=== PATIENT | female | born 1975 | race Caucasian/White ===

== ENCOUNTER → 2017-01-30 | Outpatient (CLI) | payer BC ==
[~2017-01-30] MED LIST: ADDERALL20 MG PO; CIPRO 500MG TA500 MG PO; LAMICTAL 100 M100 MG PO; NEXIUM20 MG PO; SYNTHROID0.112 MG PO; WELLBUTRIN 150150 MG PO
== END ==
LOC: LAB 19:55
DX: J01.90 Acute sinusitis, unspecified (principal)

== ENCOUNTER → 2017-03-06 | Outpatient (CLI) | payer BC ==
[2017-03-06 18:49] LABS: HEMOGLOBIN 13.9 g/dL (12.2-16.2); LYMPH # 2.9 K/mm3 (0.7-4.5); LYMPH % 24.6 % (10-50.0)
[2017-03-06 19:06] LABS: BUN 9 mg/dL (7-18)
[2017-03-06 19:08] LABS: GFR (ESTIMATED) 93 ML/MIN (59-)
== END ==
LOC: LAB 18:18
PROVIDERS: Physician Assistant
DX: E03.9 Hypothyroidism, unspecified (principal)

== ENCOUNTER 2017-08-13 07:26 | Day surgery (SDC) | payer BC ==
--- NOTE | 2017-08-13 09:00 | Operative Note ---
Upper GI Endoscopy Procedure date: 08/13/17 Date of : 79 Procedure:Upper GI Endoscopy Esophagogastroduodenoscopy with cold biopsies Indications: Mrs. Sanchez is a 41-year-old female with gastroesophageal reflux disease and dyspepsia. She also has chronic diarrhea. Most of this worsened 4 years ago after her laparoscopic cholecystectomy. She does take Nexium daily but has to supplement with Rolaids and Tums. She does report bilious diarrhea daily which occurs mostly postprandially and in the mornings. She has moderate bloating, gassiness and belching. She reports nausea, early satiety and epigastric abdominal discomfort. She has some heartburn and reflux. She reports no dysphagia. She reports no melena or hematochezia. She reports no weight loss or fever. She reports no family history of colitis, Crohn's disease or colon cancer. She is here for diagnostic upper endoscopy and colonoscopy. Performing Provider: Kacy Ortega MD Referring Provider: Anjana Osborn PA-C/Nick Kidd M.D. Sedation: Fentanyl 100 mg IV/Versed 7 mg IV Procedure: Prior to the procedure, a history and physical exam was performed, and patients medications and allergies were reviewed. The risks and benefits of the procedure and the sedation options and risks were discussed with the patient. All questions were answered and informed consent was obtained. The patient was brought to the procedure room. Patient identification and proposed procedure were verified by the physician and the nurse. The patient was placed in a left lateral decubitus position and the scope was passed under direct vision. Throughout the procedure, the patient's blood pressure, pulse, and oxygen saturations were monitored continuously. The endoscope was introduced through the mouth, and advanced to the second part of duodenum. The upper GI endoscopy was accomplished without difficulty. The patient tolerated the procedure well. Findings: The scope was passed directly into the upper esophagus and advanced to the third portion of the duodenum. The post bulbar duodenum and duodenal bulb were normal with normal mucosa and conniventes. Cold biopsies were taken from the post bulbar duodenum to rule out celiac disease. The scope was withdrawn through a normal duodenal bulb and pylorus into the stomach. There was some bile reflux with linear erythema of the antrum and body consistent with linear reactive gastritis. The remainder of the antrum, body and fundus of the stomach were grossly normal. Upon retroflexion there was no hiatal hernia. 2 biopsies were taken in the antrum and along the lesser curvature for histology. The scope was then withdrawn into the esophagus. There was no evidence of reflux esophagitis or Corona's. There was faint esophageal varices that are of questionable significance. There was a mid esophageal papilloma that was removed via cold biopsy. The remainder of the esophageal mucosa was normal. Immediate complications: None EBL (ml): 0 Impression: 1. Mid esophageal papilloma (5 mm) removed 2. Very faint esophageal varices (questionable significance) 3. Bile reflux with linear reactive gastritis Recommendations: I do feel that the patient has functional dyspepsia and functional gastroesophageal reflux disease. We will discuss additional dietary measures and treatment options. I also feel that she has colorrhea diarrhea and will likely respond to a bile acid binding agent (Colestid, WelChol or Questran). I am going to check liver function and I do not suspect portal hypertension. I will proceed with diagnostic colonoscopy. at [id number]
--- NOTE | 2017-08-13 09:18 | Operative Note ---
Colonoscopy ([facility]) Procedure date: 08/13/17 Date of : [birth year] Procedure:Colonoscopy Colonoscopy with cold biopsies Indications: Mrs. Sanchez is a 41-year-old female with gastroesophageal reflux disease and dyspepsia. She also has chronic diarrhea. Most of this worsened 4 years ago after her laparoscopic cholecystectomy. She does take Nexium daily but has to supplement with Rolaids and Tums. She does report bilious diarrhea daily which occurs mostly postprandially and in the mornings. She has moderate bloating, gassiness and belching. She reports nausea, early satiety and epigastric abdominal discomfort. She has some heartburn and reflux. She reports no dysphagia. She reports no melena or hematochezia. She reports no weight loss or fever. She reports no family history of colitis, Crohn's disease or colon cancer. She is here for diagnostic upper endoscopy and colonoscopy. Performing Provider: Kacy Ortega MD Referrring Provider: Anjana Osborn PA-C/Nick Kidd M.D. Sedation: Fentanyl 200 mg IV/Versed 9 mg IV (combined sedation for EGD/colonoscopy) Procedure: Prior to the procedure, a history and physical exam was performed, and patient medications and allergies were reviewed. The risks and benefits of the procedure and the sedation options and risks were discussed with the patient. All questions were answered and informed consent was obtained. Patient identification and proposed procedure were verified by the physician and the nurse. The patient was placed in a left lateral decubitus position. Throughout the procedure, the patient's blood pressure, pulse, and oxygen saturations were monitored continuously. Findings: On digital rectal examination there was normal rectal tone. There were no external hemorrhoids. The colonoscope was introduced through the anal canal to the rectum and advanced to the cecum. The ileocecal valve and appendiceal orifice were identified. The scope was advanced a short distance into the ileum which appeared grossly normal. The scope was then withdrawn into the colon. The cecum, ascending, transverse, descending, sigmoid and rectum were grossly normal. Cold biopsies were taken from the RIGHT colon to rule out microscopic/ lymphocytic colitis. There were no mucosal abnormalities identified. Upon retroflexion within the rectum there were grade 1 internal hemorrhoids. Impressions: 1. Normal colonoscopy with intubation of the terminal ileum 2. Grade 1 internal hemorrhoids Recommendations: I will follow up the biopsies. I suspect choleraic diarrhea and IBS. I will place the patient on a bowel acid binding agent (Colestid). We will discuss additional dietary measures and probiotic therapy. Complications: None EBL (ml): 0 at 0917
[2017-08-13 10:58] LABS: HEMOGLOBIN 14.3 g/dL (12.2-16.2); LYMPH # 2.6 K/mm3 (0.7-4.5); LYMPH % 31.1 % (10-50.0)
[2017-08-13 16:24] VITALS: BP 109/74
[2017-08-13 23:14] LABS: BUN 9 mg/dL (7-18)
[2017-08-13 23:15] LABS: GFR (ESTIMATED) 93 ML/MIN (59-)
[2017-08-14 08:43] LABS: Alpha-1-Antitrypsin 152 mg/dL (90-200); HBsAg Screen Negative (Negative); Hep A Ab, IgM Negative (Negative); Hep A Ab, Total Positive (Negative); Hep B Core Ab, IgM Negative (Negative); Hep B Core Ab, Tot Negative (Negative); Hep B Surface Ab, Qual Non Reactive (.); Hep C Virus Ab <0.1 (0.0-0.9); Iron 80 ug/dL (27-159); Iron Saturation 28 % (15-55); UIBC 202 ug/dL (131-425)
[2017-08-14 12:37] LABS: Actin (Smooth Muscle) Antibody 13 Units (0-19)
[2017-08-16 07:40] LABS: ALT (SGPT) P5P 108 IU/L (0-40); Alpha 2-Macroglobulins, Qn 210 mg/dL (110-276); Apolipoprotein A-1 117 mg/dL (116-209); Bilirubin, Total 0.4 mg/dL (0.0-1.2); Fibrosis Score 0.19 (0.00-0.21); GGT 85 IU/L (0-60); Haptoglobin 235 mg/dL (34-200); Necroinflammat Activity Grade A2-Moderate activity (.); Necroinflammat Activity Score 0.56 (0.00-0.17)
== END 2017-08-13 10:45 | disposition home or self-care (01) ==
LOC: SDC 07:26
PROVIDERS: Internal Medicine Gastroenterology
PROC: 0DB78ZX Excision of Stomach, Pylorus, Via Natural or Artificial Opening Endoscopic, Diagnostic (ICD-10-PCS; 2017-08-13)
PROC: 0DB28ZX Excision of Middle Esophagus, Via Natural or Artificial Opening Endoscopic, Diagnostic (ICD-10-PCS; 2017-08-13)
PROC: 0DBF8ZX Excision of Right Large Intestine, Via Natural or Artificial Opening Endoscopic, Diagnostic (ICD-10-PCS; 2017-08-13)
PROC: 0DB68ZX Excision of Stomach, Via Natural or Artificial Opening Endoscopic, Diagnostic (ICD-10-PCS; 2017-08-13)
PROC: 0DB98ZX Excision of Duodenum, Via Natural or Artificial Opening Endoscopic, Diagnostic (ICD-10-PCS; principal; 2017-08-13 08:30)
DX: K21.9 Gastro-esophageal reflux disease without esophagitis (principal); K52.9 Noninfective gastroenteritis and colitis, unspecified; R68.81 Early satiety; D13.0 Benign neoplasm of esophagus; I85.00 Esophageal varices without bleeding; K29.60 Other gastritis without bleeding; K30 Functional dyspepsia; K64.0 First degree hemorrhoids; Z90.49 Acquired absence of other specified parts of digestive tract; Z79.899 Other long term (current) drug therapy

== ENCOUNTER → 2017-10-18 | Outpatient (CLI) | payer BC ==
[2017-10-18 14:52] LABS: HEMOGLOBIN 13.9 g/dL (12.2-16.2); LYMPH # 3.1 K/mm3 (0.7-4.5); LYMPH % 30.9 % (10-50.0)
[2017-10-18 16:29] LABS: BUN 11 mg/dL (7-18)
[2017-10-18 16:39] LABS: GFR (ESTIMATED) 80 ML/MIN (59-)
[2017-10-20 07:38] LABS: Vitamin D, 25-Hydroxy 19.6 ng/mL (30.0-100.0)
== END ==
LOC: LAB 14:42
PROVIDERS: Physician Assistant
DX: K75.81 Nonalcoholic steatohepatitis (NASH) (principal); E55.9 Vitamin D deficiency, unspecified